=== PATIENT | male | born 1995 | race Caucasian/White ===

== ENCOUNTER 2024-01-16 17:07 | Emergency (ER) | payer SELFPAY ==
[~2024-01-16] VITALS: Ht 175.3 cm; Wt 69.0 kg
[2024-01-16 17:13] VITALS: O2SAT 98
[2024-01-16] MEDS ORDERED: BO1 TP (17:59)
[2024-01-16] MEDS: BACITRACIN ZINC OINT UDPKT TOP ONE (18:15)
[2024-01-16] MEDS: LIDOCAINE HCL/PF 1% 10 MG/ML 5ML VIAL INFIL ONE (18:16)
[2024-01-16] MEDS: TETANUS, DIPHTHERIA, PERTUSSIS VAC/PF 0.5ML (>10YR OLD) IM ONE (18:16)
[2024-01-16 19:01] VITALS: BP 113/77; PULSE 69; RESP 14; TEMP 36.78072; O2SAT 100
== END 2024-01-16 19:04 | disposition home or self-care (01) ==
LOC: ER 17:07
DX: S61.411A Laceration without foreign body of right hand, initial encounter (principal); X58.XXXA Exposure to other specified factors, initial encounter; Y93.89 Activity, other specified; Y92.89 Other specified places as the place of occurrence of the external cause; Y99.8 Other external cause status
CPT/HCPCS: 90715; 12002; 90471; 99283; J3490; Z7610 ×3